=== PATIENT | male | born 1960 | race Hispanic/Latino ===

== ENCOUNTER 2018-09-19 09:22 | Outpatient (CLI) | payer MEDICARE | END 2018-09-19 09:23 | disposition home or self-care (01) | LOC: RAD 09:22 ==

== ENCOUNTER 2018-10-04 14:02 | Outpatient (CLI) | payer MEDICARE | END 2018-10-04 14:03 | disposition home or self-care (01) | LOC: RAD 14:02 ==

== ENCOUNTER 2018-11-17 12:58 | Outpatient (CLI) | payer MEDICARE | END 2018-11-17 12:59 | disposition home or self-care (01) | LOC: RAD 12:58 | DX: R51 Headache (principal); R42 Dizziness and giddiness; J01.91 Acute recurrent sinusitis, unspecified ==